=== PATIENT | female | born 1940 | race Caucasian/White ===

== ENCOUNTER 2016-04-27 | Outpatient (CLI) | payer MEDICARE, OTHER | END 2016-04-27 11:40 | disposition short-term general hospital (02) | CPT/HCPCS: A0425; A0433 ==

== ENCOUNTER 2016-05-05 17:10 | Inpatient (IN) | payer MEDICARE, OTHER ==
[2016-05-05] MEDS ORDERED: PANTOPRAZOLE 40 MG VIAL IVP STA (19:40)
[2016-05-05] MEDS ORDERED: PANTOPRAZOLE 40 MG VIAL ONE (19:44)
[2016-05-05] MEDS ORDERED: SODIUM CHLORIDE FLUSH 0.9% 10 ML SYRINGE IVP PRN (21:04)
[2016-05-05] MEDS ORDERED: MORPHINE 2 MG/ML SYRINGE IVP PRN (21:04)
[2016-05-05] MEDS ORDERED: ONDANSETRON 4 MG/2 ML VIAL IVP PRN (21:04)
[2016-05-05] MEDS ORDERED: ONDANSETRON ODT 4 MG TABLET TL PRN (21:04)
[2016-05-05] MEDS: SODIUM CHLORIDE FLUSH 0.9% 10 ML SYRINGE IVP SCH (22:25)
[2016-05-05] MEDS: SODIUM CHLORIDE 0.9% 1,000 ML IV SCH (22:25)
[2016-05-06] MEDS: ACETAMINOPHEN 325 MG TABLET PO PRN (00:12)
[2016-05-06] MEDS: BENZONATATE 100 MG CAPSULE PO PRN ×3 (01:00→20:52)
[2016-05-06] MEDS: LEVOTHYROXINE 88 MCG TABLET PO SCH (06:06)
[2016-05-06] MEDS: PANTOPRAZOLE 40 MG VIAL IVP SCH ×2 (06:06→16:20)
[2016-05-06] MEDS: SODIUM CHLORIDE FLUSH 0.9% 10 ML SYRINGE IVP SCH ×3 (06:12→21:14)
[2016-05-06] MEDS ORDERED: METOPROLOL TARTRATE 25 MG TABLET PO SCH ×2 (09:00→09:21)
[2016-05-06] MEDS: POLYETHYLENE GLYCOL 3350 17 GM PACKET PO SCH (09:07)
[2016-05-06] MEDS: ATORVASTATIN 40 MG TABLET PO SCH (09:18)
[2016-05-06] MEDS: CLOPIDOGREL 75 MG TABLET PO SCH (09:18)
[2016-05-06] MEDS: LISINOPRIL 20 MG TABLET PO SCH ×2 (09:18→20:52)
[2016-05-06] MEDS: SUCRALFATE 1 GM/10 ML UDC PO SCH ×3 (11:34→21:06)
[2016-05-06] MEDS: SODIUM CHLORIDE 0.9% 1,000 ML IV SCH (12:38)
[2016-05-06] MEDS: METOPROLOL TARTRATE 25 MG TABLET PO SCH (20:52)
[2016-05-07] MEDS: ACETAMINOPHEN 325 MG TABLET PO PRN (01:05)
[2016-05-07] MEDS: LEVOTHYROXINE 88 MCG TABLET PO SCH (06:37)
[2016-05-07] MEDS: PANTOPRAZOLE 40 MG VIAL IVP SCH (06:38)
[2016-05-07] MEDS: SUCRALFATE 1 GM/10 ML UDC PO SCH (06:38)
[2016-05-07] MEDS: SODIUM CHLORIDE FLUSH 0.9% 10 ML SYRINGE IVP SCH (06:38)
[2016-05-07] MEDS: ATORVASTATIN 40 MG TABLET PO SCH (08:52)
[2016-05-07] MEDS: CLOPIDOGREL 75 MG TABLET PO SCH (08:52)
[2016-05-07] MEDS: METOPROLOL TARTRATE 25 MG TABLET PO SCH (08:52)
[2016-05-07] MEDS: POLYETHYLENE GLYCOL 3350 17 GM PACKET PO SCH (08:52)
[2016-05-07] MEDS: LISINOPRIL 20 MG TABLET PO SCH (08:53)
[2016-05-07] MEDS ORDERED: ASPIRIN EC 81 MG TABLET PO SCH (09:00)
== END 2016-05-07 10:27 | disposition home or self-care (01) | DRG 947 ==
DX: R53.1 Weakness (principal); K92.2 Gastrointestinal hemorrhage, unspecified; I21.3 ST elevation (STEMI) myocardial infarction of unspecified site; G43.909 Migraine, unspecified, not intractable, without status migrainosus; K92.1 Melena; K21.9 Gastro-esophageal reflux disease without esophagitis; R35.1 Nocturia; H54.7 Unspecified visual loss; D64.9 Anemia, unspecified; M19.90 Unspecified osteoarthritis, unspecified site; R42 Dizziness and giddiness; I10 Essential (primary) hypertension; E03.9 Hypothyroidism, unspecified; E78.5 Hyperlipidemia, unspecified; I25.10 Atherosclerotic heart disease of native coronary artery without angina pectoris; Z95.5 Presence of coronary angioplasty implant and graft; F32.9 Major depressive disorder, single episode, unspecified; R05 Cough; R11.0 Nausea; Z79.2 Long term (current) use of antibiotics; Z79.82 Long term (current) use of aspirin; Z79.899 Other long term (current) drug therapy; Z87.11 Personal history of peptic ulcer disease; Z96.641 Presence of right artificial hip joint; Z87.891 Personal history of nicotine dependence

== ENCOUNTER 2016-05-17 08:00 | Outpatient (CLI) | payer MEDICARE, OTHER | END 2016-05-17 08:01 | disposition home or self-care (01) | DX: D64.9 Anemia, unspecified (principal) ==

== ENCOUNTER 2016-06-06 16:18 | Emergency (ER) | payer MEDICARE, OTHER ==
[2016-06-06] MEDS ORDERED: HYDROcod/ACETAM 5/325 MG TABLET PO STA (16:44)
[2016-06-06] MEDS ORDERED: HYDROcod/ACETAM 5/325 MG TABLET ONE (16:52)
[2016-06-06] MEDS ORDERED: MORPHINE 2 MG/ML SYRINGE ONE (17:23)
[2016-06-06] MEDS ORDERED: MORPHINE 2 MG/ML SYRINGE IVP STA (17:56)
[2016-06-06] MEDS ORDERED: KETOROLAC 60 MG/2 ML VIAL IVP STA (18:13)
[2016-06-06] MEDS ORDERED: KETOROLAC 30 MG/ML VIAL ONE (18:18)
== END 2016-06-06 18:30 | disposition home or self-care (01) ==
DX: R55 Syncope and collapse (principal); S30.0XXA Contusion of lower back and pelvis, initial encounter; W18.39XA Other fall on same level, initial encounter; Y93.E1 Activity, personal bathing and showering; Y92.002 Bathroom of unspecified non-institutional (private) residence as the place of occurrence of the external cause; Y99.8 Other external cause status; I10 Essential (primary) hypertension; R94.31 Abnormal electrocardiogram [ECG] [EKG]; I25.2 Old myocardial infarction; Z95.5 Presence of coronary angioplasty implant and graft; E03.9 Hypothyroidism, unspecified; Z79.02 Long term (current) use of antithrombotics/antiplatelets; Z79.82 Long term (current) use of aspirin; Z87.891 Personal history of nicotine dependence
CPT/HCPCS: 36415; 72100; 72220; 80053; 83690; 84484; 85025; 93005; 93010; 96374; 96375; 99283; 99284; A9270

== ENCOUNTER 2016-06-19 09:00 | Outpatient (CLI) | payer MEDICARE, OTHER | END 2016-06-19 09:01 | disposition home or self-care (01) | DX: N39.0 Urinary tract infection, site not specified (principal) ==

== ENCOUNTER 2016-07-31 14:19 | Outpatient (CLI) | payer MEDICARE, OTHER | END 2016-07-31 14:20 | disposition home or self-care (01) | DX: E30.9 Disorder of puberty, unspecified (principal); E03.9 Hypothyroidism, unspecified; R55 Syncope and collapse ==

== ENCOUNTER 2016-08-29 09:35 | Outpatient (CLI) | payer MEDICARE, OTHER | END 2016-08-29 09:36 | disposition home or self-care (01) | LOC: SC 09:35 | PROVIDERS: ATTEND Internal Medicine Pulmonary Disease | DX: G47.10 Hypersomnia, unspecified (principal); G47.8 Other sleep disorders; R06.83 Snoring | CPT/HCPCS: 99203; G0463; 99212 ==

== ENCOUNTER 2016-09-22 19:34 | Outpatient (CLI) | payer MEDICARE, OTHER | END 2016-09-22 19:35 | disposition home or self-care (01) | LOC: SC 19:34 | PROVIDERS: ATTEND Internal Medicine Pulmonary Disease | DX: G47.33 Obstructive sleep apnea (adult) (pediatric) (principal); G47.61 Periodic limb movement disorder; Z68.29 Body mass index [BMI] 29.0-29.9, adult | CPT/HCPCS: 95810 ==

== ENCOUNTER 2017-04-11 10:54 | Outpatient (CLI) | payer MEDICARE, OTHER | END 2017-04-11 10:55 | disposition critical access hospital (66) | LOC: EMS 10:54 | PROVIDERS: ATTEND Surgery | DX: R53.1 Weakness (principal); W18.2XXA Fall in (into) shower or empty bathtub, initial encounter; Y93.E1 Activity, personal bathing and showering; Y92.002 Bathroom of unspecified non-institutional (private) residence as the place of occurrence of the external cause | CPT/HCPCS: A0425; A0429 ==

== ENCOUNTER 2017-04-11 11:11 | Emergency (ER) | payer MEDICARE, OTHER ==
[2017-04-11] MEDS ORDERED: SODIUM CHLORIDE 0.9% 1,000 ML IV ONE (12:44)
[2017-04-11 13:26] LABS: BASOPHILS # (AUTO) 0.1 10^3/uL (0.0-0.1); BASOPHILS % (AUTO) 1.3 %; EOSINOPHILS # (AUTO) 0.4 10^3/uL (0.0-0.7); EOSINOPHILS % (AUTO) 4.3 %; HGB - HEMOGLOBIN 12.3 g/dL (12.0-16.0); LYMPHOCYTES # (AUTO) 1.2 10^3/uL (1.5-3.5); LYMPHOCYTES % (AUTO) 13.1 %; MEAN CORPUSCULAR HEMOGLOBIN 31.4 pg (27.0-31.0); MEAN CORPUSCULAR HGB CONC 33.7 g/dL (32.0-36.0); MEAN CORPUSCULAR VOLUME 93.2 fL (81.0-99.0); MEAN PLATELET VOLUME 9.5 fL (7.9-10.8); MONOCYTES # (AUTO) 0.7 10^3/uL (0.0-1.0); MONOCYTES % (AUTO) 8.1 %; NEUTROPHILS # (AUTO) 6.4 10^3/uL (1.5-6.6); NEUTROPHILS % (AUTO) 73.2 %; PLT - PLATELET COUNT 296 10^3/uL (130-450); RED BLOOD COUNT 3.92 10^6/uL (4.20-5.40); WHITE BLOOD COUNT 8.8 x10^3/uL (4.8-10.8)
[2017-04-11 13:39] LABS: ALBUMIN 3.8 g/dL (3.2-5.5); ALBUMIN/GLOBULIN RATIO 1.2 (1.0-2.2); BILIRUBIN,TOTAL 0.5 mg/dL (0.2-1.0); CREATININE 0.7 mg/dL (0.4-1.0); TOTAL PROTEIN 7.1 g/dL (6.7-8.2)
[2017-04-11 13:44] LABS: BILIRUBIN,URINE NEGATIVE (NEGATIVE); GLUCOSE, URINE (UA) NEGATIVE (NEGATIVE); KETONES,URINE (UA) NEGATIVE (NEGATIVE); LEUKOCYTE ESTERASE, URINE NEGATIVE (NEGATIVE); NITRITE,URINE NEGATIVE (NEGATIVE); OCCULT BLOOD,URINE NEGATIVE (NEGATIVE); PROTEIN,URINE NEGATIVE (NEGATIVE); UROBILINOGEN,URINE 0.2 (NORMAL) E.U./dL (NORMAL)
[2017-04-11 13:45] LABS: CLARITY,URINE CLEAR (CLEAR)
--- NOTE | 2017-04-11 14:11 | ED Physician Documentation ---
History of Present Illness - Stated complaint Stated Complaint: GLF - TAILBONE PAIN - Chief complaint Chief Complaint: Trauma Ch/Bk - History obtained from History obtained from: Patient, Family (Spouse) - History of Present Illness Timing: Today - Additonal information Additional information: The patient is a 76-year-old female who was in the shower this morning when she felt generally weak as if her legs would give out on her. She set down in the bathtub rather than fall. She complains of pain in her tailbone currently. She denies any other injuries. She does report having generalized weakness, waxing and waning for the past 2 weeks. She reports dysuria, and has had "tightness in the chest" intermittently for the past few months. She also reports dry cough. She was seen by her primary physician 4 days ago and a chest x-ray revealed a hiatal hernia without other acute findings. She was diagnosed with urinary tract infection 4 days ago and was started on cephalexin. On further review of systems she denies fever, abdominal pain, nausea or vomiting. Her past medical history significant for AL in April 2016. Review of Systems Constitutional: reports: Fatigue. denies: Fever Eyes: denies: Decreased vision Ears: denies: Tinnitus/ringing Nose: denies: Congestion Throat: denies: Sore throat Cardiac: reports: Chest pain / pressure (Mild chest tightness intermittently for the past few months. No chest pain currently.). denies: Palpitations Respiratory: reports: Cough (nonproductive). denies: Dyspnea GI: denies: Abdominal Pain, Nausea, Vomiting : reports: Dysuria Skin: denies: Rash Musculoskeletal: reports: Other (Coccygeal discomfort.). denies: Neck pain Neurologic: reports: Generalized weakness. 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 Cardiovascular: Coronary stent HEENT: Cataracts, Tonsil/Adenoidectomy, Other - Present Medications Home Medications: Ambulatory Orders Medication Instructions Recorded Confirmed Lisinopril [Zestril] 20 mg PO BID 08/13/15 05/05/16 hydroCHLOROthiazide 12.5 mg PO DAILY 08/13/15 05/05/16 [Hydrochlorothiazide] Atorvastatin [Lipitor] 40 mg PO QPM 05/05/16 05/07/16 Clopidogrel Bisulfate [Plavix] 75 mg PO DAILY 05/05/16 05/05/16 Fexofenadine HCl [Jazmín Allergy] 180 mg PO DAILY 05/05/16 05/05/16 Nefazodone HCl 200 mg PO BID 05/05/16 05/05/16 Aspirin Chewable [St Skinny 81 mg PO DAILY 05/07/16 05/07/16 Aspirin] Calcium Carbonate/Vitamin D3 1 tab PO DAILY 05/07/16 05/07/16 [Calcium 500 + Vit D Caplet] Levothyroxine [Synthroid] 75 mcg PO QDAC 05/07/16 05/07/16 Metoprolol Succinate [Toprol Xl] 25 mg PO BID 05/07/16 05/07/16 Multivitamin-Min/Iron/FA/Vit K 1 cap PO DAILY 05/07/16 05/07/16 [Multi For Her Softgel] Omeprazole [PriLOSEC] 20 mg PO BID 05/07/16 05/07/16 Potassium Chloride [Klor-Con 10] 20 meq PO DAILY 05/07/16 05/07/16 Lidocaine Patch 5% [Lidoderm Patch] 1 each TOP DAILY PRN #10 patch 06/06/16 Oxycodone HCl/Acetaminophen 1 - 2 tab PO Q4H PRN #15 tablet 06/06/16 [Percocet 5-325 mg Tablet] Tramadol HCl 50 mg PO BID PRN #15 tablet 04/11/17 - Allergies Allergies/Adverse Reactions: Allergies Allergy/AdvReac Type Severity Reaction Status Date / Time amoxicillin trihydrate * AdvReac Severe Cramps Verified 04/11/17 11:30 [From Augmentin] Niacin Preparations AdvReac Severe Unknown Verified 04/11/17 11:30 potassium clavulanate * AdvReac Severe Cramps Verified 04/11/17 11:30 [From Augmentin] - Social History Does the pt smoke?: No Smoking Status: Never smoker Does the pt drink ETOH?: Yes Does the pt have substance abuse?: No - Immunizations Immunizations are current?: Yes - POLST Patient has POLST: Yes PD ED PE NORMAL - Vitals Vital signs reviewed: Yes (hypertensive) - General General: Alert and oriented X 3, Well developed/nourished - HEENT HEENT: Atraumatic, PERRL, EOMI, Moist mucous membranes, Pharynx benign - Neck Neck: Supple, no meningeal sign, No bony TTP, No adenopathy, No JVD - Cardiac Cardiac: RRR, No murmur - Respiratory Respiratory: No respiratory distress, Clear bilaterally - Abdomen Abdomen: Soft, Non tender, No organomegaly - Back Back: No CVA TTP, Other (Mild tenderness to palpation over the coccygeal segments, without ecchymosis, swelling, or deformity.) - Derm Derm: No rash - Extremities Extremities: No edema, No calf tenderness / cord - Neuro Neuro: Alert and oriented X 3, No motor deficit, No sensory deficit, Normal speech Results - Vitals Vitals: Oxygen O2 Source Room air - EKG (time done) 13:57 Rate: Rate (enter#) (61) Rhythm: NSR [place]: Normal QRS: Normal Ischemia: Non specific changes (Nonspecific T-wave flattening.) Compare to prior EKG: Changed from prior EKG (Compared to prior tracing of 2016, T-wave inversion is no longer present in anterior lateral leads I, aVL, and V2-3.) Computer interpretation: Agree with computer - Labs Labs: Laboratory Tests 04/11/17 04/11/17 04/11/17 13:13 13:13 13:13 WBC 8.8 RBC 3.92 L Hgb 12.3 Hct 36.6 L MCV 93.2 MCH 31.4 H MCHC 33.7 RDW 15.0 Plt Count 296 MPV 9.5 Neut # 6.4 Lymph # 1.2 L [place] # 0.7 Eos # 0.4 Baso # 0.1 Absolute Nucleated RBC 0.00 Nucleated RBC % 0.0 Sodium 139 Potassium 4.1 Chloride 104 Carbon Dioxide 24 Anion Gap 11.0 BUN 19 Creatinine 0.7 Estimated GFR (MDRD) 81 L Glucose 79 Calcium 9.0 Total Bilirubin 0.5 AST 19 ALT 12 Alkaline Phosphatase 136 H Troponin I < 0.04 Total Protein 7.1 Albumin 3.8 Globulin 3.3 Albumin/Globulin Ratio 1.2 Lipase 29 Urine Color Urine Clarity Urine pH Ur Specific [place] Urine Protein Urine Glucose (UA) Urine Ketones Urine Occult Blood Urine Nitrite Urine Bilirubin Urine Urobilinogen Ur Leukocyte Esterase Ur Microscopic Review Urine Culture Comments 04/11/17 13:15 WBC RBC Hgb Hct MCV MCH MCHC RDW Plt Count MPV Neut # Lymph # [place] # Eos # Baso # Absolute Nucleated RBC Nucleated RBC % Sodium Potassium Chloride Carbon Dioxide Anion Gap BUN Creatinine Estimated GFR (MDRD) Glucose Calcium Total Bilirubin AST ALT Alkaline Phosphatase Troponin I Total Protein Albumin Globulin Albumin/Globulin Ratio Lipase Urine Color DARK YELLOW Urine Clarity CLEAR Urine pH 6.0 Ur Specific [place] 1.020 Urine Protein NEGATIVE Urine Glucose (UA) NEGATIVE Urine Ketones NEGATIVE Urine Occult Blood NEGATIVE Urine Nitrite NEGATIVE Urine Bilirubin NEGATIVE Urine Urobilinogen 0.2 (NORMAL) Ur Leukocyte Esterase NEGATIVE Ur Microscopic Review NOT INDICATED Urine Culture Comments NOT INDICATED PD MEDICAL DECISION MAKING - ED course Complexity details: reviewed old records, reviewed results, re-evaluated patient , considered differential, d/w patient, d/w family ED course: The patient's presentation is significant for contusion of her coccyx, buttocks secondary to falling into her bathtub. The underlying cause of her generalized weakness is uncertain at this time. There is no clinical evidence to suggest stroke or cardiovascular collapse. Electrocardiogram reveals normal sinus rhythm without acute ischemic abnormalities. CBC, chemistry panel, and urinalysis are unremarkable. Her urinalysis is negative, indicating resolution of urinary infection with the current antibiotic therapy. There is no clinical evidence to suggest sepsis or pyelonephritis. Treatment in the emergency department included administration of normal saline 1 L IV, and metoprolol 25 mg orally. She demonstrated the ability to ambulate without assistance. At the time of discharge she remained hypertensive. I discussed with her and her symptomatic treatment, outpatient follow-up, as well as potentially worrisome signs or symptoms that should prompt reevaluation in the emergency department. Departure - Departure Disposition: 01 Home, Self Care Clinical Impression: Weakness Fall Qualifiers: Encounter type: initial encounter Qualified Code(s): W19.XXXA - Unspecified fall, initial encounter Contusion, buttock Qualifiers: Encounter type: initial encounter Qualified Code(s): S30.0XXA - Contusion of lower back and pelvis, initial encounter Hypertension Qualifiers: Hypertension type: unspecified Qualified Code(s): I10 - Essential (primary) hypertension Condition: Stable Instructions: ED Fall Dizziness Weakn Balance Follow-Up: Alka Boacnegra MD [Primary Care Provider] - Prescriptions: Tramadol HCl 50 mg PO BID PRN #15 tablet PRN Reason: Pain Comments: Drink plenty of fluids. You can use tramadol as prescribed if needed for pain. Follow up with your primary physician within 1-2 weeks. Call to schedule appointment. Return to the emergency department if you develop increasing pain, recurrent lightheadedness or falling, or otherwise worsening symptoms. Discharge Date/Time: 04/11/17 17:00
[2017-04-11] MEDS ORDERED: METOPROLOL TARTRATE 50 MG TABLET PO STA (14:25)
[2017-04-11 16:10] VITALS: BP 212/88
== END 2017-04-11 17:00 | disposition home or self-care (01) ==
LOC: EDUNIT# → ED 11:11
DX: S30.0XXA Contusion of lower back and pelvis, initial encounter (principal); W18.2XXA Fall in (into) shower or empty bathtub, initial encounter; Y93.E1 Activity, personal bathing and showering; Y92.012 Bathroom of single-family (private) house as the place of occurrence of the external cause; R53.1 Weakness; I10 Essential (primary) hypertension; I25.2 Old myocardial infarction; E03.9 Hypothyroidism, unspecified; K21.9 Gastro-esophageal reflux disease without esophagitis; M19.90 Unspecified osteoarthritis, unspecified site; Z79.82 Long term (current) use of aspirin; Z79.02 Long term (current) use of antithrombotics/antiplatelets
CPT/HCPCS: 36415; 80053; 81003; 83690; 84484; 85025; 93005; 96360; 96361; 99284; A9270; 81001; 87086

== ENCOUNTER 2017-05-20 10:47 | Outpatient (CLI) | payer MEDICARE, OTHER ==
[2017-05-20 13:30] LABS: BASOPHILS # (AUTO) 0.1 10^3/uL (0.0-0.1); EOSINOPHILS # (AUTO) 0.3 10^3/uL (0.0-0.7); EOSINOPHILS % (AUTO) 3.8 %; HGB - HEMOGLOBIN 11.9 g/dL (12.0-16.0); LYMPHOCYTES # (AUTO) 1.2 10^3/uL (1.5-3.5); LYMPHOCYTES % (AUTO) 16.9 %; MEAN CORPUSCULAR HEMOGLOBIN 30.6 pg (27.0-31.0); MEAN CORPUSCULAR HGB CONC 33.3 g/dL (32.0-36.0); MEAN CORPUSCULAR VOLUME 91.9 fL (81.0-99.0); MEAN PLATELET VOLUME 9.7 fL (7.9-10.8); MONOCYTES # (AUTO) 0.5 10^3/uL (0.0-1.0); MONOCYTES % (AUTO) 6.3 %; NEUTROPHILS # (AUTO) 5.3 10^3/uL (1.5-6.6); PLT - PLATELET COUNT 295 10^3/uL (130-450); RED BLOOD COUNT 3.89 10^6/uL (4.20-5.40); WHITE BLOOD COUNT 7.4 x10^3/uL (4.8-10.8)
[2017-05-20 13:46] LABS: ALBUMIN 3.7 g/dL (3.2-5.5); ALBUMIN/GLOBULIN RATIO 1.2 (1.0-2.2); ALKALINE PHOSPHATASE 110 IU/L (42-121); ALT ALANINE AMINOTRANSFERASE 10 IU/L (10-60); AST ASPARTATE AMINOTRANSFERASE 20 IU/L (10-42); BILIRUBIN,TOTAL 0.4 mg/dL (0.2-1.0); BUN - BLOOD UREA NITROGEN 18 mg/dL (6-20); CARBON DIOXIDE - CO2 23 mmol/L (21-32); CHLORIDE 108 mmol/L (101-111); CHOL/HDL RATIO 4.2 (<4.4); CHOLESTEROL 263 mg/dL; CREATININE 0.7 mg/dL (0.4-1.0); GFR - MDRD 81 (>89); GLUCOSE 90 mg/dL (70-100); HDL CHOLESTEROL 62 mg/dL; LDL CHOLESTEROL,CALCULATED 157 mg/dL; LDL/HDL RATIO 2.5 (<4.4); SODIUM 138 mmol/L (135-145); TOTAL PROTEIN 6.8 g/dL (6.7-8.2); VLDL CHOLESTEROL 44 mg/dL
[2017-05-20 13:58] LABS: THYROID STIMULATING HORMONE 0.83 uIU/mL (0.34-5.60)
[2017-05-20 14:01] LABS: FREE T4 (FREE THYROXINE) 0.81 ng/dL (0.58-1.64)
[2017-05-20 14:10] LABS: FOLATE 13.99 ng/mL (5.90 - >24.8)
== END 2017-05-20 10:48 ==
LOC: LAB.N 10:47
PROVIDERS: ATTEND Family Medicine
DX: D64.9 Anemia, unspecified (principal); R55 Syncope and collapse; R53.83 Other fatigue; E03.9 Hypothyroidism, unspecified; I21.3 ST elevation (STEMI) myocardial infarction of unspecified site; I25.10 Atherosclerotic heart disease of native coronary artery without angina pectoris; M85.80 Other specified disorders of bone density and structure, unspecified site; E78.5 Hyperlipidemia, unspecified; I10 Essential (primary) hypertension; E87.6 Hypokalemia; F41.8 Other specified anxiety disorders
CPT/HCPCS: 36415; 80053; 80061; 82607; 82746; 83721; 84439; 84443; 85025

== ENCOUNTER 2017-06-02 09:17 | Outpatient (CLI) | payer MEDICARE, OTHER | END 2017-06-02 09:18 | disposition home or self-care (01) | LOC: SC 09:17 | PROVIDERS: ATTEND Nurse Practitioner Family | DX: G47.33 Obstructive sleep apnea (adult) (pediatric) (principal); G47.61 Periodic limb movement disorder | CPT/HCPCS: 99214; G0463; 99212 ==

== ENCOUNTER 2017-11-25 11:58 | Outpatient (CLI) | payer MEDICARE, OTHER ==
[2017-11-25 19:03] LABS: BASOPHILS # (AUTO) 0.1 10^3/uL (0.0-0.1); EOSINOPHILS # (AUTO) 0.2 10^3/uL (0.0-0.7); EOSINOPHILS % (AUTO) 2.2 %; LYMPHOCYTES # (AUTO) 1.5 10^3/uL (1.5-3.5); LYMPHOCYTES % (AUTO) 20.7 %; MEAN CORPUSCULAR HEMOGLOBIN 31.6 pg (27.0-31.0); MEAN CORPUSCULAR VOLUME 95.8 fL (81.0-99.0); MEAN PLATELET VOLUME 10.2 fL (7.9-10.8); MONOCYTES # (AUTO) 0.5 10^3/uL (0.0-1.0); MONOCYTES % (AUTO) 6.5 %; NEUTROPHILS # (AUTO) 5.1 10^3/uL (1.5-6.6); NEUTROPHILS % (AUTO) 69.6 %; PLT - PLATELET COUNT 316 10^3/uL (130-450); RED CELL DISTRIBUTION WIDTH 16.6 % (12.0-15.0); WHITE BLOOD COUNT 7.4 x10^3/uL (4.8-10.8)
[2017-11-25 19:22] LABS: ALBUMIN/GLOBULIN RATIO 1.4 (1.0-2.2); ALKALINE PHOSPHATASE 107 IU/L (42-121); ALT ALANINE AMINOTRANSFERASE 14 IU/L (10-60); AST ASPARTATE AMINOTRANSFERASE 22 IU/L (10-42); BILIRUBIN,TOTAL 0.6 mg/dL (0.2-1.0); BUN - BLOOD UREA NITROGEN 22 mg/dL (6-20); CARBON DIOXIDE - CO2 24 mmol/L (21-32); CHLORIDE 107 mmol/L (101-111); CHOL/HDL RATIO 3.6 (<4.4); CHOLESTEROL 199 mg/dL; CREATININE 0.8 mg/dL (0.4-1.0); GFR - MDRD 69 (>89); GLUCOSE 94 mg/dL (70-100); HDL CHOLESTEROL 55 mg/dL; LDL CHOLESTEROL,CALCULATED 110 mg/dL; SODIUM 138 mmol/L (135-145); TOTAL PROTEIN 6.8 g/dL (6.7-8.2); VLDL CHOLESTEROL 34 mg/dL
[2017-11-25 20:00] LABS: CRP - C-REACTIVE PROTEIN < 1.0 mg/dL (0-1.0)
[2017-11-27 13:22] LABS: ANA SCREEN NEGATIVE (NEGATIVE)
== END 2017-11-25 11:59 | disposition home or self-care (01) ==
LOC: LAB.N 11:58
PROVIDERS: ATTEND Family Medicine
DX: M25.50 Pain in unspecified joint (principal); D64.9 Anemia, unspecified; M19.90 Unspecified osteoarthritis, unspecified site; R53.83 Other fatigue; E78.5 Hyperlipidemia, unspecified; I10 Essential (primary) hypertension; E87.6 Hypokalemia; E03.9 Hypothyroidism, unspecified; F41.8 Other specified anxiety disorders
CPT/HCPCS: 36415; 80053; 80061; 83721; 84443; 85025; 85651; 86038; 86140

== ENCOUNTER 2018-05-27 15:29 | Outpatient (CLI) | payer MEDICARE, OTHER ==
[2018-05-27 18:41] LABS: BASOPHILS # (AUTO) 0.1 10^3/uL (0.0-0.1); EOSINOPHILS # (AUTO) 0.2 10^3/uL (0.0-0.7); EOSINOPHILS % (AUTO) 2.9 %; HGB - HEMOGLOBIN 13.2 g/dL (12.0-16.0); LYMPHOCYTES # (AUTO) 1.6 10^3/uL (1.5-3.5); LYMPHOCYTES % (AUTO) 25.7 %; MEAN CORPUSCULAR HEMOGLOBIN 32.4 pg (27.0-31.0); MEAN CORPUSCULAR HGB CONC 33.1 g/dL (32.0-36.0); MEAN CORPUSCULAR VOLUME 97.9 fL (81.0-99.0); MEAN PLATELET VOLUME 10.3 fL (7.9-10.8); MONOCYTES # (AUTO) 0.5 10^3/uL (0.0-1.0); MONOCYTES % (AUTO) 7.6 %; NEUTROPHILS % (AUTO) 62.8 %; PLT - PLATELET COUNT 256 10^3/uL (130-450); RED BLOOD COUNT 4.08 10^6/uL (4.20-5.40); RED CELL DISTRIBUTION WIDTH 16.2 % (12.0-15.0); WHITE BLOOD COUNT 6.3 x10^3/uL (4.8-10.8)
[2018-05-27 19:50] LABS: ALBUMIN 3.7 g/dL (3.2-5.5); ALBUMIN/GLOBULIN RATIO 1.3 (1.0-2.2); ALKALINE PHOSPHATASE 94 IU/L (42-121); ALT ALANINE AMINOTRANSFERASE 14 IU/L (10-60); AST ASPARTATE AMINOTRANSFERASE 26 IU/L (10-42); BILIRUBIN,TOTAL 0.6 mg/dL (0.2-1.0); BUN - BLOOD UREA NITROGEN 14 mg/dL (6-20); CALCIUM 8.9 mg/dL (8.5-10.3); CARBON DIOXIDE - CO2 24 mmol/L (21-32); CHLORIDE 106 mmol/L (101-111); CHOL/HDL RATIO 2.5 (<4.4); CHOLESTEROL 144 mg/dL; CREATININE 0.8 mg/dL (0.4-1.0); GFR - MDRD 69 (>89); GLUCOSE 145 mg/dL (70-100); HDL CHOLESTEROL 58 mg/dL; LDL CHOLESTEROL,CALCULATED 58 mg/dL; SODIUM 138 mmol/L (135-145); TOTAL PROTEIN 6.5 g/dL (6.7-8.2); VLDL CHOLESTEROL 28 mg/dL
== END 2018-05-27 23:59 | disposition home or self-care (01) ==
LOC: LAB.N 15:29
PROVIDERS: ATTEND Family Medicine
DX: E78.5 Hyperlipidemia, unspecified (principal); I10 Essential (primary) hypertension; E03.9 Hypothyroidism, unspecified
CPT/HCPCS: 36415; 80048; 80053; 80061; 83721; 84443; 85025

== ENCOUNTER 2018-07-19 14:22 | Emergency (ER) | payer MEDICARE, OTHER ==
[2018-07-19] MEDS ORDERED: SODIUM CHLORIDE 0.9% 1,000 ML IV ONE (15:18)
--- NOTE | 2018-07-19 15:22 | ED Physician Documentation ---
PD HPI SYNCOPE - Stated complaint Stated Complaint: GLF/ABD PX - Chief complaint Chief Complaint: Neuro - History obtained from History obtained from: Patient, Friend - History of Present Illness Witnessed: Unwitnessed Timing - onset: Today Duration: Seconds Preceding symptoms: Vision changes, Abdominal pain, Light headed, Generalized weakness, Other (diarrhea) Associated symptoms: Diaphoresis, Abdominal pain Contributing factors: Decreased PO intake, Other (diarrhea) Injury occurred: Other (right thigh pain) Similar symptoms before: Has not had sx before Recently seen: Not recently seen - Additional information Additional information: 77-year-old female has had a good friend have a fall in his home and he is ended up in the hospital here with broken ribs. He has been in a lot of pain for days and she has been very stressed with this and has not been eating or drinking well. She was in his room this morning at the hospital when she developed urgen cy and went to the bathroom to have some diarrhea. She was incontinent of diarrhea and while she was on the commode she fell forward and was not able to get back up off of her knees. Eventually the nurse did come to check on her and it had been about 20 minutes that she was in the bathroom. The patient denies hitting her head she is uncertain whether she had complete syncope. Review of Systems Constitutional: reports: Fatigue. denies: Fever, Chills Eyes: denies: Decreased vision Ears: denies: Ear pain Nose: denies: Rhinorrhea / runny nose, Congestion Throat: denies: Sore throat Cardiac: denies: Chest pain / pressure, Palpitations Respiratory: denies: Dyspnea, Cough GI: reports: Abdominal Pain, Diarrhea. 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 Cardiovascular: Coronary stent HEENT: Cataracts, Tonsil/Adenoidectomy, Other - Present Medications Home Medications: Ambulatory Orders Medication Instructions Recorded Confirmed Lisinopril [Zestril] 20 mg PO BID 08/13/15 05/05/16 hydroCHLOROthiazide 12.5 mg PO DAILY 08/13/15 05/05/16 [Hydrochlorothiazide] Atorvastatin [Lipitor] 40 mg PO QPM 05/05/16 05/07/16 Clopidogrel Bisulfate [Plavix] 75 mg PO DAILY 05/05/16 05/05/16 Fexofenadine HCl [Jazmín Allergy] 180 mg PO DAILY 05/05/16 05/05/16 Nefazodone HCl 200 mg PO BID 05/05/16 05/05/16 Aspirin Chewable [St Skinny 81 mg PO DAILY 05/07/16 05/07/16 Aspirin] Calcium Carbonate/Vitamin D3 1 tab PO DAILY 05/07/16 05/07/16 [Calcium 500 + Vit D Caplet] Levothyroxine [Synthroid] 75 mcg PO QDAC 05/07/16 05/07/16 Metoprolol Succinate [Toprol Xl] 25 mg PO BID 05/07/16 05/07/16 Multivitamin-Min/Iron/FA/Vit K 1 cap PO DAILY 05/07/16 05/07/16 [Multi For Her Softgel] Omeprazole [PriLOSEC] 20 mg PO BID 05/07/16 05/07/16 Potassium Chloride [Klor-Con 10] 20 meq PO DAILY 05/07/16 05/07/16 Lidocaine Patch 5% [Lidoderm Patch] 1 each TOP DAILY PRN #10 patch 06/06/16 Oxycodone HCl/Acetaminophen 1 - 2 tab PO Q4H PRN #15 tablet 06/06/16 [Percocet 5-325 mg Tablet] Tramadol HCl 50 mg PO BID PRN #15 tablet 04/11/17 - Allergies Allergies/Adverse Reactions: Allergies Allergy/AdvReac Type Severity Reaction Status Date / Time amoxicillin trihydrate * AdvReac Severe Cramps Verified 07/19/18 14:35 [From Augmentin] Niacin Preparations AdvReac Severe Unknown Verified 07/19/18 14:35 potassium clavulanate * AdvReac Severe Cramps Verified 07/19/18 14:35 [From Augmentin] - Social History Does the pt smoke?: No Smoking Status: Never smoker Does the pt drink ETOH?: Yes Does the pt have substance abuse?: No - Immunizations Immunizations are current?: Yes - POLST Patient has POLST: Yes PD ED PE NORMAL - Vitals Vital signs reviewed: Yes (normal ) - General General: Alert and oriented X 3, No acute distress, Well developed/nourished - HEENT HEENT: Atraumatic, PERRL, EOMI - Neck Neck: Supple, no meningeal sign, No bony TTP - Cardiac Cardiac: RRR, No murmur - Respiratory Respiratory: No respiratory distress, Clear bilaterally - Abdomen Abdomen: Soft, Non tender - Back Back: No CVA TTP, No spinal TTP - Derm Derm: Normal color, Warm and dry, No rash - Extremities Extremities: No deformity, No edema - Neuro Neuro: Alert and oriented X 3, 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, No motor deficit, No sensory deficit, Normal speech Eye Opening: Spontaneous Motor: Obeys Commands Verbal: Oriented GCS Score: 15 - Psych Psych: Normal mood, Normal affect Results - Vitals Vitals: Vital Signs - 24 hr 07/19/18 07/19/18 07/19/18 14:28 14:56 16:38 Temperature 36.7 C 36.3 C L Heart Rate 57 L 60 69 Respiratory 16 18 18 Rate Blood Pressure 126/62 141/63 H 134/66 H O2 Saturation 97 93 99 Oxygen O2 Source Room air - EKG (time done) 1432 Rate: Rate (enter#) (55) Rhythm: Sinus bradycardia Ischemia: Other (flat T waves ) Compare to prior EKG: Unchanged from prior EKG (SPT 04-11-17) Computer interpretation: Disagree with computer (This is not afib ) - Labs Labs: Laboratory Tests 07/19/18 07/19/18 07/19/18 15:50 15:50 15:50 WBC 10.1 RBC 3.99 L Hgb 13.5 Hct 40.4 MCV 101.3 H MCH 33.9 H MCHC 33.4 RDW 15.3 H Plt Count 234 MPV 9.8 Neut # (Auto) 8.5 H Lymph # (Auto) 1.0 L [place] # (Auto) 0.5 Eos # (Auto) 0.1 Baso # (Auto) 0.1 Absolute Nucleated RBC 0.00 Nucleated RBC % 0.0 Sodium 140 Potassium 4.2 Chloride 107 Carbon Dioxide 25 Anion Gap 8.0 BUN 16 Creatinine 0.7 Estimated GFR (MDRD) 81 L Glucose 114 H Calcium 9.4 Total Bilirubin 0.6 AST 29 ALT 16 Alkaline Phosphatase 81 Troponin I < 0.04 Total Protein 7.0 Albumin 3.8 Globulin 3.2 Albumin/Globulin Ratio 1.2 Lipase 26 Urine Color Urine Clarity Urine pH Ur Specific [place] Urine Protein Urine Glucose (UA) Urine Ketones Urine Occult Blood Urine Nitrite Urine Bilirubin Urine Urobilinogen Ur Leukocyte Esterase Urine RBC Urine WBC Ur Epithelial Cells Ur Squamous Epith Cells Urine Bacteria Urine Casts Urine Mucus Ur Microscopic Review Urine Culture Comments 07/19/18 15:50 WBC RBC Hgb Hct MCV MCH MCHC RDW Plt Count MPV Neut # (Auto) Lymph # (Auto) [place] # (Auto) Eos # (Auto) Baso # (Auto) Absolute Nucleated RBC Nucleated RBC % Sodium Potassium Chloride Carbon Dioxide Anion Gap BUN Creatinine Estimated GFR (MDRD) Glucose Calcium Total Bilirubin AST ALT Alkaline Phosphatase Troponin I Total Protein Albumin Globulin Albumin/Globulin Ratio Lipase Urine Color YELLOW Urine Clarity HAZY Urine pH 5.5 Ur Specific [place] >=1.030 H Urine Protein NEGATIVE Urine Glucose (UA) NEGATIVE Urine Ketones TRACE Urine Occult Blood NEGATIVE Urine Nitrite POSITIVE H Urine Bilirubin NEGATIVE Urine Urobilinogen 0.2 (NORMAL) Ur Leukocyte Esterase NEGATIVE Urine RBC 0-5 Urine WBC 4-5 Ur Epithelial Cells FEW Transitional Ur Squamous Epith Cells FEW Squamous Urine Bacteria Many H Urine Casts 11-25 Hyaline Casts Urine Mucus Moderate Strands Ur Microscopic Review INDICATED Urine Culture Comments INDICATED Procedures - IVC sono (time) 1520 Bedside IVC sono: IVC measures (cm) (1.14), IVC collapsed c insp (cm) (complete), Dehydration (est 1 liter deficit) PD MEDICAL DECISION MAKING - ED course Complexity details: reviewed old records, reviewed results, re-evaluated patient, considered differential, d/w patient, d/w family ED course: 77-year-old female with significant stresses developed diarrhea and has had a syncopal episode. She is found to be dehydrated on interrogation of the inferior vena cava and she is administered normal saline. There is evidence of UTI on exam of urine with bacteria and nitrite and the urine did make the grade for culture. The patient is administered IV rocephin and we will wait for culture results to determine the need for continued antibiotic. Departure - Departure Disposition: 01 Home, Self Care Clinical Impression: Dehydration Syncope Qualifiers: Syncope type: unspecified Qualified Code(s): R55 - Syncope and collapse Urinary tract infection Qualifiers: Urinary tract infection type: acute cystitis Hematuria presence: with hematuria Qualified Code(s): N30.01 - Acute cystitis with hematuria Condition: Stable Instructions: ED Dehydration, ED Syncope Vasovagal Follow-Up: Alka Bocanegra MD [Primary Care Provider] - Comments: Today you were treated for dehydration and there is a potential urinary tract infection. Urine culture will be available in 2 days.
[2018-07-19 16:00] LABS: BASOPHILS # (AUTO) 0.1 10^3/uL (0.0-0.1); BASOPHILS % (AUTO) 0.8 %; EOSINOPHILS # (AUTO) 0.1 10^3/uL (0.0-0.7); EOSINOPHILS % (AUTO) 0.6 %; HGB - HEMOGLOBIN 13.5 g/dL (12.0-16.0); LYMPHOCYTES % (AUTO) 9.9 %; MEAN CORPUSCULAR HEMOGLOBIN 33.9 pg (27.0-31.0); MEAN CORPUSCULAR HGB CONC 33.4 g/dL (32.0-36.0); MEAN CORPUSCULAR VOLUME 101.3 fL (81.0-99.0); MEAN PLATELET VOLUME 9.8 fL (7.9-10.8); MONOCYTES # (AUTO) 0.5 10^3/uL (0.0-1.0); NEUTROPHILS # (AUTO) 8.5 10^3/uL (1.5-6.6); NEUTROPHILS % (AUTO) 83.7 %; PLT - PLATELET COUNT 234 10^3/uL (130-450); RED BLOOD COUNT 3.99 10^6/uL (4.20-5.40); RED CELL DISTRIBUTION WIDTH 15.3 % (12.0-15.0); WHITE BLOOD COUNT 10.1 x10^3/uL (4.8-10.8)
[2018-07-19 16:13] LABS: BILIRUBIN,URINE NEGATIVE (NEGATIVE); GLUCOSE, URINE (UA) NEGATIVE (NEGATIVE); KETONES,URINE (UA) TRACE mg/dL (NEGATIVE); LEUKOCYTE ESTERASE, URINE NEGATIVE (NEGATIVE); NITRITE,URINE POSITIVE (NEGATIVE); OCCULT BLOOD,URINE NEGATIVE (NEGATIVE); PH,URINE 5.5 PH (5.0-7.5); PROTEIN,URINE NEGATIVE (NEGATIVE); UROBILINOGEN,URINE 0.2 (NORMAL) E.U./dL (NORMAL)
[2018-07-19 16:16] LABS: CLARITY,URINE HAZY (CLEAR)
[2018-07-19 16:21] LABS: RBC,URINE 0-5 /HPF (0-5); SQUAMOUS EPITHELIAL CELL,UR FEW Squamous (<= Few)
[2018-07-19 16:22] LABS: BACTERIA,URINE Many /HPF (None Seen); EPITHELIAL CELLS,UR FEW Transitional /HPF (<= Few)
[2018-07-19 16:23] LABS: MUCUS,URINE Moderate Strands
[2018-07-19 16:25] LABS: ALBUMIN 3.8 g/dL (3.2-5.5); ALBUMIN/GLOBULIN RATIO 1.2 (1.0-2.2); BILIRUBIN,TOTAL 0.6 mg/dL (0.2-1.0); CALCIUM 9.4 mg/dL (8.5-10.3); CREATININE 0.7 mg/dL (0.4-1.0)
[2018-07-19] MEDS ORDERED: cefTRIAXone 1 GM in SODIUM CHLORIDE 0.9% MINIBAG 100 ML IV STA (16:29)
[2018-07-19 17:16] VITALS: BP 149/63
== END 2018-07-19 17:29 | disposition home or self-care (01) ==
LOC: ED 14:22
DX: E86.0 Dehydration (principal); R55 Syncope and collapse; N30.01 Acute cystitis with hematuria; R94.31 Abnormal electrocardiogram [ECG] [EKG]; Z91.81 History of falling; I25.2 Old myocardial infarction; I10 Essential (primary) hypertension; E03.9 Hypothyroidism, unspecified; Z95.5 Presence of coronary angioplasty implant and graft; Z79.82 Long term (current) use of aspirin
CPT/HCPCS: 36415; 80053; 81001; 81003; 83690; 84484; 85025; 87077; 87086; 87181; 93005; 96365; 99284

== ENCOUNTER 2018-08-07 13:07 | Outpatient (CLI) | payer MEDICARE, OTHER ==
[2018-08-07 18:59] LABS: BILIRUBIN,URINE NEGATIVE (NEGATIVE); GLUCOSE, URINE (UA) NEGATIVE (NEGATIVE); KETONES,URINE (UA) TRACE mg/dL (NEGATIVE); LEUKOCYTE ESTERASE, URINE SMALL (NEGATIVE); NITRITE,URINE NEGATIVE (NEGATIVE); OCCULT BLOOD,URINE NEGATIVE (NEGATIVE); PH,URINE 5.5 PH (5.0-7.5); PROTEIN,URINE TRACE mg/dL (NEGATIVE); UROBILINOGEN,URINE 0.2 (NORMAL) E.U./dL (NORMAL)
[2018-08-07 19:07] LABS: BACTERIA,URINE Rare /HPF (None Seen); CLARITY,URINE HAZY (CLEAR); RBC,URINE 0-5 /HPF (0-5); SQUAMOUS EPITHELIAL CELL,UR MANY Squamous (<= Few)
== END 2018-08-07 23:59 | disposition home or self-care (01) ==
LOC: LAB.N 13:07
PROVIDERS: ATTEND Family Medicine
DX: R30.0 Dysuria (principal)
CPT/HCPCS: 81001; 81003; 87086

== ENCOUNTER 2018-10-31 20:34 | Emergency (ER) | payer MEDICARE, OTHER ==
--- NOTE | 2018-10-31 21:00 | ED Physician Documentation ---
History of Present Illness - Stated complaint Stated Complaint: LFT LEG SWELLING - Chief complaint Chief Complaint: Ext Problem - History obtained from History obtained from: Patient - History of Present Illness Timing: How many weeks ago (3) Pain level max: 10 - Additonal information Additional information: This is a 78-year-old woman who presents with her significant other complaints at 3 weeks ago she was visiting family in [place] when she fell and injured "her left side" of her body. She went into the emergency department and had x- rays done. She had a wound on the lateral aspect of the left lower leg that just has not healed. The leg is been swollen since she fell but the redness is getting worse and now it is oozing a little bit around that wound. There is just a throbbing pain for which they prescribed oxycodone but is not helping it at all. She is able to bear weight but is very painful. She is been icing it. She flew to her daughter's home 8 days ago in [facility] and then came home 3 days ago. She is not sure if she is had fevers but has been feeling chills and sweats the past couple days. She is felt nauseous. Denies chest pain. She does occasionally feel like it is hard to get a deep breath. Denies history of diabetes. She has a history of MT 2 years ago Review of Systems Constitutional: reports: Chills, Sweats. denies: Fever Cardiac: denies: Chest pain / pressure, Palpitations Respiratory: reports: Dyspnea GI: reports: Nausea (Secondary to pain). denies: Vomiting Skin: reports: Other (Wound to the lateral lower left leg. Bruising to left thigh) Musculoskeletal: reports: Extremity pain Neurologic: denies: Focal weakness, Syncope PD PAST MEDICAL HISTORY - Past Medical History Cardiovascular: Hypertension, [place] Respiratory: Shortness of breath Endocrine/Autoimmune: HyPOthyroidism GI: GERD, Other : Nocturia HEENT: Chronic vision loss Psych: Depression Musculoskeletal: Osteoarthritis Derm: None - Past Surgical History Past Surgical History: Yes General: Colonoscopy Ortho: Hip replacement /ORCHARD HAND: Hysterectomy Cardiovascular: Coronary stent HEENT: Cataracts, Tonsil/Adenoidectomy, Other - Present Medications Home Medications: Ambulatory Orders Medication Instructions Recorded Confirmed RX: Lisinopril [Zestril] 20 mg PO BID 08/13/15 05/05/16 RX: hydroCHLOROthiazide 12.5 mg PO DAILY 08/13/15 05/05/16 [Hydrochlorothiazide] RX: Atorvastatin [Lipitor] 40 mg PO QPM 05/05/16 05/07/16 RX: Clopidogrel Bisulfate [Plavix] 75 mg PO DAILY 05/05/16 05/05/16 RX: Fexofenadine HCl [Jazmín 180 mg PO DAILY 05/05/16 05/05/16 Allergy] RX: Nefazodone HCl 200 mg PO BID 05/05/16 05/05/16 Calcium Carbonate/Vitamin D3 1 tab PO DAILY 05/07/16 05/07/16 [Calcium 500 + Vit D Caplet] Metoprolol Succinate [Toprol Xl] 25 mg PO BID 05/07/16 05/07/16 Omeprazole [PriLOSEC] 20 mg PO BID 05/07/16 05/07/16 RX: Aspirin Chewable [St Skinny 81 mg PO DAILY 05/07/16 05/07/16 Aspirin] RX: Levothyroxine [Synthroid] 75 mcg PO QDAC 05/07/16 05/07/16 RX: Multivitamin-Min/Iron/FA/Vit K 1 cap PO DAILY 05/07/16 05/07/16 [Multi For Her Softgel] RX: Potassium Chloride [Klor-Con 20 meq PO DAILY 05/07/16 05/07/16 10] Lidocaine Patch 5% [Lidoderm Patch] 1 each TOP DAILY PRN #10 patch 06/06/16 Oxycodone HCl/Acetaminophen 1 - 2 tab PO Q4H PRN #15 tablet 06/06/16 [Percocet 5-325 mg Tablet] RX: Tramadol HCl 50 mg PO BID PRN #15 tablet 04/11/17 Hydrocodone/Acetaminophen 0 - 1 each PO Q6H PRN #14 tablet 11/01/18 [Hydrocodon-Acetaminophen 5-325] cephALEXin [Keflex] 250 mg PO Q6H #20 capsule 11/01/18 - Allergies Allergies/Adverse Reactions: Allergies Allergy/AdvReac Type Severity Reaction Status Date / Time amoxicillin trihydrate * AdvReac Severe Cramps Verified 07/19/18 14:35 [From Augmentin] Niacin Preparations AdvReac Severe Unknown Verified 07/19/18 14:35 potassium clavulanate * AdvReac Severe Cramps Verified 07/19/18 14:35 [From Augmentin] - Social History Does the pt smoke?: No Smoking Status: Never smoker Does the pt drink ETOH?: Yes Does the pt have substance abuse?: No - Immunizations Immunizations are current?: Yes - POLST Patient has POLST: Yes PD ED PE NORMAL - Vitals Vital signs reviewed: Yes - General General: Alert and oriented X 3, No acute distress, Well developed/nourished - HEENT HEENT: Atraumatic - Respiratory Respiratory: No respiratory distress - Extremities Extremities: Other (There is purple discolored bruising to the left lateral thigh. The lower leg has what appears to be a hematoma above the lateral malleolus with surrounding erythema and edema down encompassing the foot. There is bruising to the lateral foot. Hematoma is exquisitely tender. There is no warmth associated with it.) - Neuro Neuro: Alert and oriented X 3, No motor deficit, No sensory deficit Results - Vitals Vitals: Vital Signs - 24 hr 10/31/18 10/31/18 11/01/18 20:40 22:49 00:22 Temperature 36.6 C 36.3 C L Heart Rate 70 69 67 Respiratory 18 12 18 Rate Blood Pressure 153/76 H 150/66 H 147/66 H O2 Saturation 96 94 92 Oxygen O2 Source Room air - Labs Labs: Laboratory Tests 10/31/18 10/31/18 21:30 21:30 WBC 9.1 RBC 3.10 L Hgb 10.5 L Hct 33.0 L MCV 106.5 H MCH 33.9 H MCHC 31.8 L RDW 15.7 H Plt Count 421 MPV 10.1 Neut # (Auto) 6.8 H Lymph # (Auto) 1.1 L Jones # (Auto) 0.8 Eos # (Auto) 0.3 Baso # (Auto) 0.1 Absolute Nucleated RBC 0.00 Nucleated RBC % 0.0 Sodium 143 Potassium 3.4 L Chloride 110 Carbon Dioxide 21 Anion Gap 12.0 BUN 15 Creatinine 0.7 Estimated GFR (MDRD) 81 L Glucose 131 H Calcium 9.0 - Rads (name of study) L tib-fib Radiology: EMP read contemporaneously, See rad report (Neg fracture) Duplex U/S LLE Radiology: See rad report (Neg DVT) PD MEDICAL DECISION MAKING - ED course Complexity details: reviewed results, re-evaluated patient, d/w patient ED course: Patient was given morphine for the pain. I did re-x-ray it because of the appearance and the severe pain to make sure she did not have a nondisplaced fibular fracture that was not apparent on the initial x-rays. The x-ray was negative and ultrasound of DVT was negative. She is placed on Keflex 250 mg 4 times daily for 5 days. She is encouraged to rest and elevate the leg is much as possible and use some sort of compression stocking or Mohinder wrap. We discussed that this is going to take weeks for it to heal. Departure - Departure Disposition: 01 Home, Self Care Clinical Impression: Cellulitis, Hematoma Condition: Good Instructions: ED Infec Skin Cellulitis Follow-Up: Alka Bocanegra MD [Primary Care Provider] - Prescriptions: cephALEXin [Keflex] 250 mg PO Q6H #20 capsule Hydrocodone/Acetaminophen [Hydrocodon-Acetaminophen 5-325] 0 - 1 each PO Q6H PRN #14 tablet PRN Reason: pain Comments: Take the Keflex as prescribed 4 times a day for 5 days. Keep the leg wash with an antibacterial soap and a compression bandage can help reduce the swelling. Follow-up with your primary care provider if it in leg continues to swell or have severe pain. Discharge Date/Time: 11/01/18 00:33
[2018-10-31] MEDS ORDERED: ONDANSETRON 4 MG/2 ML VIAL IVP STA (21:01)
[2018-10-31] MEDS ORDERED: MORPHINE 2 MG/ML CARPUJECT IVP STA ×2 (21:01→23:25)
[2018-10-31 21:41] LABS: BASOPHILS # (AUTO) 0.1 10^3/uL (0.0-0.1); BASOPHILS % (AUTO) 0.5 %; EOSINOPHILS # (AUTO) 0.3 10^3/uL (0.0-0.7); HGB - HEMOGLOBIN 10.5 g/dL (12.0-16.0); LYMPHOCYTES # (AUTO) 1.1 10^3/uL (1.5-3.5); LYMPHOCYTES % (AUTO) 12.5 %; MEAN CORPUSCULAR HEMOGLOBIN 33.9 pg (27.0-31.0); MEAN CORPUSCULAR HGB CONC 31.8 g/dL (32.0-36.0); MEAN CORPUSCULAR VOLUME 106.5 fL (81.0-99.0); MEAN PLATELET VOLUME 10.1 fL (7.9-10.8); MONOCYTES # (AUTO) 0.8 10^3/uL (0.0-1.0); NEUTROPHILS # (AUTO) 6.8 10^3/uL (1.5-6.6); NEUTROPHILS % (AUTO) 74.7 %; PLT - PLATELET COUNT 421 10^3/uL (130-450); RED CELL DISTRIBUTION WIDTH 15.7 % (12.0-15.0); WHITE BLOOD COUNT 9.1 x10^3/uL (4.8-10.8)
--- NOTE | 2018-10-31 21:53 | XRAY Report ---
Reason: trauma Procedure Date: 10/31/2018 Accession Number: [id number] / [id number] Procedure: XR - Tib/Fib LT CPT Code: FULL RESULT: EXAM: LEFT TIBIA/FIBULA RADIOGRAPHY EXAM DATE: 10/31/2018 09:31 PM. CLINICAL HISTORY: Trauma. COMPARISON: None. TECHNIQUE: 2 views. FINDINGS: Bones: Normal. No fracture or bone lesion. Joints: The visualized knee and ankle joints are normal. No effusions. Soft Tissues: Normal. No soft tissue swelling. IMPRESSION: Normal tibia/fibula radiography. RADIA
[2018-10-31 21:54] LABS: CREATININE 0.7 mg/dL (0.4-1.0)
--- NOTE | 2018-10-31 23:11 | Ultrasound Report ---
Reason: left leg tauma and swelling Procedure Date: 10/31/2018 Accession Number: [id number] / [id number] Procedure: US - Duplex Ext Veins Left CPT Code: FULL RESULT: EXAM: LEFT LOWER EXTREMITY VENOUS ULTRASOUND EXAM DATE: 10/31/2018 11:02 PM. CLINICAL HISTORY: Left leg trauma. Swelling. COMPARISON: None. TECHNIQUE: Real-time sonographic vascular imaging was performed by the spray gun operator through the lower extremity utilizing both color-flow and Doppler spectral analysis. Multiple financial services sales representative static images were saved for review. FINDINGS: Common Femoral Vein (CFV): Normal. CFV-GSV Junction: Normal. Profunda Femoral Vein (PFV): Normal. Femoral Vein (FV) Prox: Normal. Femoral Vein (FV) Mid: Normal. Femoral Vein (FV) Dist: Normal. Popliteal Vein: Normal. Posterior Tibial Veins: Limited visualization. Peroneal Veins: Limited visualization. Contralateral Side CFV: Normal. Other: None. IMPRESSION: No evidence for deep venous thrombosis. RADIA
[2018-11-01] MEDS ORDERED: cephALEXin 250 MG CAPSULE PO STA (00:12)
[2018-11-01] MEDS ORDERED: BACITRACIN OINT TOP STA (00:12)
[2018-11-01 00:22] VITALS: BP 147/66
== END 2018-11-01 00:33 | disposition home or self-care (01) ==
LOC: ED 20:34
DX: L03.116 Cellulitis of left lower limb (principal); S80.12XA Contusion of left lower leg, initial encounter; S70.12XA Contusion of left thigh, initial encounter; S90.32XA Contusion of left foot, initial encounter; W18.30XA Fall on same level, unspecified, initial encounter; I10 Essential (primary) hypertension; I25.2 Old myocardial infarction; Z79.02 Long term (current) use of antithrombotics/antiplatelets; Z79.82 Long term (current) use of aspirin
CPT/HCPCS: 36415; 73590; 80048; 85025; 93971; 96374; 96376; 99284; A9270

== ENCOUNTER 2020-09-25 14:10 | Emergency (ER) | payer MEDICARE, OTHER ==
[2020-09-25 15:37] LABS: BASOPHILS # (AUTO) 0.1 10^3/uL (0.0-0.1); BASOPHILS % (AUTO) 0.7 %; EOSINOPHILS # (AUTO) 0.1 10^3/uL (0.0-0.7); EOSINOPHILS % (AUTO) 1.5 %; HCT - HEMATOCRIT 38.5 % (37.0-47.0); HGB - HEMOGLOBIN 13.5 g/dL (12.0-16.0); LYMPHOCYTES # (AUTO) 1.2 10^3/uL (1.5-3.5); MEAN CORPUSCULAR HEMOGLOBIN 35.9 pg (27.0-31.0); MEAN CORPUSCULAR HGB CONC 35.1 g/dL (32.0-36.0); MEAN CORPUSCULAR VOLUME 102.4 fL (81.0-99.0); MEAN PLATELET VOLUME 11.6 fL (7.9-10.8); MONOCYTES # (AUTO) 0.7 10^3/uL (0.0-1.0); MONOCYTES % (AUTO) 9.2 %; NEUTROPHILS # (AUTO) 5.9 10^3/uL (1.5-6.6); NEUTROPHILS % (AUTO) 73.5 %; PLT - PLATELET COUNT 224 10^3/uL (130-450); RED BLOOD COUNT 3.76 10^6/uL (4.20-5.40); RED CELL DISTRIBUTION WIDTH 12.1 % (12.0-15.0); WHITE BLOOD COUNT 8.1 x10^3/uL (4.8-10.8)
[2020-09-25 15:47] LABS: CALCIUM 9.2 mg/dL (8.5-10.3); CREATININE 0.8 mg/dL (0.4-1.0); POTASSIUM 3.9 mmol/L (3.5-5.0)
--- NOTE | 2020-09-25 16:51 | ED Physician Documentation ---
History of Present Illness - Stated complaint Stated Complaint: FEMALE - Chief complaint Chief Complaint: General - History obtained from History obtained from: Patient - Additonal information Additional information: 79-year-old woman presents with a week or more worth of lightheadedness, feels like her head is full of cotton, has no energy. Denies chest pain or trouble breathing. She also has about a weeks worth of urinary urgency frequency and dysuria consistent with prior episodes of UTI although reportedly was seen in the clinic with negative urinalysis results. Feels like she was not drinking enough water with recent heat wave. Review of Systems Constitutional: reports: Myalgias. 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: Hysterectomy Cardiovascular: Coronary stent HEENT: Cataracts, Tonsil/Adenoidectomy, Other - Present Medications Home Medications: Ambulatory Orders Medication Instructions Recorded Confirmed Lisinopril [Zestril] 20 mg PO BID 08/13/15 05/05/16 hydroCHLOROthiazide 12.5 mg PO DAILY 08/13/15 05/05/16 [Hydrochlorothiazide] Atorvastatin [Lipitor] 40 mg PO QPM 05/05/16 05/07/16 Clopidogrel Bisulfate [Plavix] 75 mg PO DAILY 05/05/16 05/05/16 Fexofenadine HCl [Jazmín Allergy] 180 mg PO DAILY 05/05/16 05/05/16 Nefazodone HCl 200 mg PO BID 05/05/16 05/05/16 Aspirin Chewable [St Skinny 81 mg PO DAILY 05/07/16 05/07/16 Aspirin] Calcium Carbonate/Vitamin D3 1 tab PO DAILY 05/07/16 05/07/16 [Calcium 500 + Vit D Caplet] Levothyroxine [Synthroid] 75 mcg PO QDAC 05/07/16 05/07/16 Metoprolol Succinate [Toprol Xl] 25 mg PO BID 05/07/16 05/07/16 Multivit-Min/Iron/Folic Acid/K 1 cap PO DAILY 05/07/16 05/07/16 [Multi For Her Softgel] Omeprazole [PriLOSEC] 20 mg PO BID 05/07/16 05/07/16 Potassium Chloride [Klor-Con 10] 20 meq PO DAILY 05/07/16 05/07/16 Lidocaine Patch 5% [Lidoderm Patch] 1 each TOP DAILY PRN #10 patch 06/06/16 Oxycodone HCl/Acetaminophen 1 - 2 tab PO Q4H PRN #15 tablet 06/06/16 [Percocet 5-325 mg Tablet] Tramadol HCl 50 mg PO BID PRN #15 tablet 04/11/17 Hydrocodone/Acetaminophen 0 - 1 each PO Q6H PRN #14 tablet 11/01/18 [Hydrocodon-Acetaminophen 5-325] cephALEXin [Keflex] 250 mg PO Q6H #20 capsule 11/01/18 Nitrofurantoin [Macrobid] 1 cap PO BID #10 cap 09/25/20 - Allergies Allergies/Adverse Reactions: Allergies Allergy/AdvReac Type Severity Reaction Status Date / Time amoxicillin trihydrate * AdvReac Severe Cramps Verified 09/25/20 14:30 [From Augmentin] Niacin Preparations AdvReac Severe Unknown Verified 09/25/20 14:30 potassium clavulanate * AdvReac Severe Cramps Verified 09/25/20 14:30 [From Augmentin] - Social History Does the pt smoke?: No Smoking Status: Never smoker Does the pt drink ETOH?: Yes Does the pt have substance abuse?: No - Immunizations Immunizations are current?: Yes - POLST Patient has POLST: Yes PD ED PE NORMAL - Vitals Vital signs reviewed: Yes - General General: Alert and oriented X 3, No acute distress - HEENT HEENT: PERRL, EOMI, Ears normal, Pharynx benign - Neck Neck: Supple, no meningeal sign, No bony TTP - Cardiac Cardiac: RRR, No murmur - Respiratory Respiratory: No respiratory distress, Clear bilaterally - Abdomen Abdomen: Normal bowel sounds, Soft, Non tender - Back Back: No CVA TTP, No spinal TTP - Derm Derm: Normal color, Warm and dry - Extremities Extremities: No edema, No calf tenderness / cord - Neuro Neuro: Alert and oriented X 3, Normal speech Results - Vitals Vitals: Vital Signs - 24 hr 09/25/20 14:30 Temperature 36.8 C Heart Rate 72 Respiratory 16 Rate Blood Pressure 142/62 H O2 Saturation 93 Oxygen O2 Source Room air - Labs Labs: Laboratory Tests 09/25/20 09/25/20 09/25/20 15:31 15:31 18:17 WBC 8.1 RBC 3.76 L Hgb 13.5 Hct 38.5 MCV 102.4 H MCH 35.9 H MCHC 35.1 RDW 12.1 Plt Count 224 MPV 11.6 H Neut # (Auto) 5.9 Lymph # (Auto) 1.2 L [place] # (Auto) 0.7 Eos # (Auto) 0.1 Baso # (Auto) 0.1 Absolute Nucleated RBC 0.00 Nucleated RBC % 0.0 Sodium 135 Potassium 3.9 Chloride 103 Carbon Dioxide 23 Anion Gap 9.0 BUN 25 H Creatinine 0.8 Estimated GFR (MDRD) 69 L Glucose 116 H Calcium 9.2 Urine Color ORANGE Urine Clarity CLEAR Urine pH 5.0 Ur Specific [place] 1.015 Urine Protein NEGATIVE Urine Glucose (UA) NEGATIVE Urine Ketones NEGATIVE Urine Occult Blood NEGATIVE Urine Nitrite POSITIVE H Urine Bilirubin NEGATIVE Urine Urobilinogen 1 (NORMAL) Ur Leukocyte Esterase NEGATIVE Urine RBC 0-5 Urine WBC 4-5 Ur Squamous Epith Cells FEW Squamous Urine Bacteria Few Urine Casts 6-10 Course Granular Ur Microscopic Review INDICATED Urine Culture Comments INDICATED PD MEDICAL DECISION MAKING - ED course ED course: 79-year-old woman presents with nonspecific dizziness, nothing in the history or physical to suggest cardiac etiology. Noted to have elevated BUN over her usual, suspect dehydration is at least partially causative and will give her some IV fluids. Departure - Departure Disposition: 01 Home, Self Care Clinical Impression: Dehydration UTI (urinary tract infection) Qualifiers: Urinary tract infection type: acute cystitis Hematuria presence: without he maturia Qualified Code(s): N30.00 - Acute cystitis without hematuria Condition: Good Record reviewed to determine appropriate education?: Yes Instructions: ED Dehydration Prescriptions: Nitrofurantoin [Macrobid] 1 cap PO BID #10 cap Comments: We will culture your urine, the results should be done in 48-72 hours. If an antibiotic change is necessary we will call you. Return if worse in the meantime, especially if you develop increasing flank pain, fevers, or cannot keep down the medication. Call your doctor to arrange a follow-up appointment, make the next available appointment. In the interim, return anytime if worse or if new symptoms develop.
[2020-09-25] MEDS ORDERED: SODIUM CHLORIDE 0.9% 2,000 ML IV STA (16:52)
[2020-09-25 18:27] LABS: BILIRUBIN,URINE NEGATIVE (NEGATIVE); GLUCOSE, URINE (UA) NEGATIVE (NEGATIVE); KETONES,URINE (UA) NEGATIVE (NEGATIVE); LEUKOCYTE ESTERASE, URINE NEGATIVE (NEGATIVE); NITRITE,URINE POSITIVE (NEGATIVE); OCCULT BLOOD,URINE NEGATIVE (NEGATIVE); PROTEIN,URINE NEGATIVE (NEGATIVE); UROBILINOGEN,URINE 1 (NORMAL) E.U./dL (NORMAL)
[2020-09-25 18:34] LABS: CLARITY,URINE CLEAR (CLEAR)
[2020-09-25 18:41] LABS: BACTERIA,URINE Few /HPF (None Seen); CASTS, URINE 6-10 Course Granular /LPF; RBC,URINE 0-5 /HPF (0-5); SQUAMOUS EPITHELIAL CELL,UR FEW Squamous (<= Few)
[2020-09-25] MEDS ORDERED: cefTRIAXone 1 GM in SODIUM CHLORIDE 0.9% MINIBAG 100 ML IV STA (18:56)
[2020-09-25] MEDS ORDERED: cefTRIAXone 1 GM VIAL ONE (19:06)
[2020-09-25 19:27] VITALS: BP 148/82
== END 2020-09-25 19:55 | disposition home or self-care (01) ==
LOC: ED 14:10
DX: E86.0 Dehydration (principal); N30.00 Acute cystitis without hematuria
CPT/HCPCS: 36415; 80048; 81001; 81003; 85025; 87077; 87086; 87181; 96361; 96365; 99284

== ENCOUNTER 2020-09-29 16:04 | Outpatient (CLI) | payer MEDICARE, OTHER | END 2020-09-29 16:05 | disposition critical access hospital (66) | LOC: EMS 16:04 | DX: R30.0 Dysuria (principal); R53.81 Other malaise | CPT/HCPCS: A0425; A0427 ==

== ENCOUNTER 2020-09-29 16:26 | Emergency (ER) | payer MEDICARE, OTHER ==
[2020-09-29 16:55] LABS: BASOPHILS # (AUTO) 0.1 10^3/uL (0.0-0.1); BASOPHILS % (AUTO) 0.9 %; EOSINOPHILS # (AUTO) 0.1 10^3/uL (0.0-0.7); EOSINOPHILS % (AUTO) 1.8 %; HCT - HEMATOCRIT 39.5 % (37.0-47.0); HGB - HEMOGLOBIN 13.7 g/dL (12.0-16.0); LYMPHOCYTES # (AUTO) 1.8 10^3/uL (1.5-3.5); LYMPHOCYTES % (AUTO) 23.1 %; MEAN CORPUSCULAR HEMOGLOBIN 35.4 pg (27.0-31.0); MEAN CORPUSCULAR HGB CONC 34.7 g/dL (32.0-36.0); MEAN CORPUSCULAR VOLUME 102.1 fL (81.0-99.0); MEAN PLATELET VOLUME 11.3 fL (7.9-10.8); MONOCYTES # (AUTO) 0.7 10^3/uL (0.0-1.0); MONOCYTES % (AUTO) 9.6 %; NEUTROPHILS # (AUTO) 4.9 10^3/uL (1.5-6.6); NEUTROPHILS % (AUTO) 64.3 %; PLT - PLATELET COUNT 226 10^3/uL (130-450); RED BLOOD COUNT 3.87 10^6/uL (4.20-5.40); RED CELL DISTRIBUTION WIDTH 11.9 % (12.0-15.0); WHITE BLOOD COUNT 7.6 x10^3/uL (4.8-10.8)
[2020-09-29 17:07] LABS: ALBUMIN 4.3 g/dL (3.2-5.5); ALBUMIN/GLOBULIN RATIO 1.7 (1.0-2.2); CALCIUM 9.1 mg/dL (8.5-10.3); CREATININE 0.8 mg/dL (0.4-1.0); POTASSIUM 3.7 mmol/L (3.5-5.0); TOTAL PROTEIN 6.8 g/dL (6.7-8.2)
--- NOTE | 2020-09-29 19:12 | ED Physician Documentation ---
PD HPI ABD PAIN - Stated complaint Stated Complaint: FEM - Chief complaint Chief Complaint: Abd Pain - History obtained from History obtained from: Patient - Additional information Additional information: I saw this 79-year-old woman 5 days ago for complaints of dysuria and frequency. Urine was positive for nitrite. Also had elevated BUN and got some IV fluids. Subsequently urinalysis grew Enterococcus faecalis which was pansensitive to what was tested. She was put on Macrobid. The antibiotic is marked as sensitive to the isolate. She returns with worsening left lower quadrant pain with diarrhea. 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 Cardiovascular: Coronary stent HEENT: Cataracts, Tonsil/Adenoidectomy, Other - Present Medications Home Medications: Ambulatory Orders Medication Instructions Recorded Confirmed Lisinopril [Zestril] 20 mg PO BID 08/13/15 05/05/16 hydroCHLOROthiazide 12.5 mg PO DAILY 08/13/15 05/05/16 [Hydrochlorothiazide] Atorvastatin [Lipitor] 40 mg PO QPM 05/05/16 05/07/16 Clopidogrel Bisulfate [Plavix] 75 mg PO DAILY 05/05/16 05/05/16 Fexofenadine HCl [Jazmín Allergy] 180 mg PO DAILY 05/05/16 05/05/16 Nefazodone HCl 200 mg PO BID 05/05/16 05/05/16 Aspirin Chewable [St Skinny 81 mg PO DAILY 05/07/16 05/07/16 Aspirin] Calcium Carbonate/Vitamin D3 1 tab PO DAILY 05/07/16 05/07/16 [Calcium 500 + Vit D Caplet] Levothyroxine [Synthroid] 75 mcg PO QDAC 05/07/16 05/07/16 Metoprolol Succinate [Toprol Xl] 25 mg PO BID 05/07/16 05/07/16 Multivit-Min/Iron/Folic Acid/K 1 cap PO DAILY 05/07/16 05/07/16 [Multi For Her Softgel] Omeprazole [PriLOSEC] 20 mg PO BID 05/07/16 05/07/16 Potassium Chloride [Klor-Con 10] 20 meq PO DAILY 05/07/16 05/07/16 Lidocaine Patch 5% [Lidoderm Patch] 1 each TOP DAILY PRN #10 patch 06/06/16 Oxycodone HCl/Acetaminophen 1 - 2 tab PO Q4H PRN #15 tablet 06/06/16 [Percocet 5-325 mg Tablet] Tramadol HCl 50 mg PO BID PRN #15 tablet 04/11/17 Hydrocodone/Acetaminophen 0 - 1 each PO Q6H PRN #14 tablet 11/01/18 [Hydrocodon-Acetaminophen 5-325] cephALEXin [Keflex] 250 mg PO Q6H #20 capsule 11/01/18 Nitrofurantoin [Macrobid] 1 cap PO BID #10 cap 09/25/20 Ciprofloxacin HCl [Cipro] 500 mg PO BID #20 tablet 09/29/20 - Allergies Allergies/Adverse Reactions: Allergies Allergy/AdvReac Type Severity Reaction Status Date / Time amoxicillin trihydrate * AdvReac Severe Cramps Verified 09/29/20 16:31 [From Augmentin] Niacin Preparations AdvReac Severe Unknown Verified 09/29/20 16:31 potassium clavulanate * AdvReac Severe Cramps Verified 09/29/20 16:31 [From Augmentin] - Social History Does the pt smoke?: No Smoking Status: Never smoker Does the pt drink ETOH?: Yes Does the pt have substance abuse?: No - Immunizations Immunizations are current?: Yes - POLST Patient has POLST: Yes PD ED PE NORMAL - Vitals Vital signs reviewed: Yes - General General: Alert and oriented X 3, No acute distress - Cardiac Cardiac: RRR, No murmur - Respiratory Respiratory: No respiratory distress, Clear bilaterally - Abdomen Abdomen: Other (Minimally tender in the left lower quadrants without guarding or rebound. No shingles rash that I can see.) - Neuro Neuro: Alert and oriented X 3, Normal speech Results - Vitals Vitals: Vital Signs - 24 hr 09/29/20 09/29/20 09/29/20 16:31 20:00 21:00 Temperature 36.6 C 36.8 C 36.8 C Heart Rate 66 54 L 59 L Respiratory 16 16 16 Rate Blood Pressure 150/89 H 175/82 H 192/85 H O2 Saturation 100 98 98 09/29/20 09/29/20 21:52 23:01 Temperature 36.0 C L Heart Rate 53 L 62 Respiratory 15 16 Rate Blood Pressure 189/78 H 170/74 H O2 Saturation 95 96 Oxygen O2 Source Room air - Labs Labs: Laboratory Tests 09/29/20 09/29/20 09/29/20 16:49 16:49 19:35 WBC 7.6 RBC 3.87 L Hgb 13.7 Hct 39.5 MCV 102.1 H MCH 35.4 H MCHC 34.7 RDW 11.9 L Plt Count 226 MPV 11.3 H Neut # (Auto) 4.9 Lymph # (Auto) 1.8 [place] # (Auto) 0.7 Eos # (Auto) 0.1 Baso # (Auto) 0.1 Absolute Nucleated RBC 0.00 Nucleated RBC % 0.0 Sodium 136 Potassium 3.7 Chloride 102 Carbon Dioxide 22 Anion Gap 12.0 BUN 20 Creatinine 0.8 Estimated GFR (MDRD) 69 L Glucose 99 Calcium 9.1 Total Bilirubin 1.0 AST 26 ALT 17 Alkaline Phosphatase 92 Total Protein 6.8 Albumin 4.3 Globulin 2.5 Albumin/Globulin Ratio 1.7 Lipase 29 Urine Color ORANGE Urine Clarity CLEAR Urine pH 5.0 Ur Specific [place] 1.015 Urine Protein ... Urine Glucose (UA) ... Urine Ketones ... Urine Occult Blood NEGATIVE Urine Nitrite ... Urine Bilirubin NEGATIVE Urine Urobilinogen ... Ur Leukocyte Esterase TRACE H Urine RBC 0-5 Urine WBC 0-3 Ur Squamous Epith Cells MOD Squamous H Urine Bacteria Rare Ur Microscopic Review INDICATED Urine Culture Comments NOT INDICATED PD MEDICAL DECISION MAKING - ED course ED course: 79-year-old woman presents with left pelvic pain with recent diagnosis of Enterococcus UTI, on Macrobid which should be appropriate unless she had early pyelonephritis. Given the lateralization that may be the case. To assess for other etiologies, CT of the abdomen with IV contrast was done and interpreted contemporaneously by me which shows mild diverticulosis, 3.7 cm simple cyst in the right Kidney, a 1 cm nodule on the posterior left diaphragm needing follow- up imaging in 3 months, scoliosis and degenerative changes of the spine. Patient did have some relief with Toradol here. She is administered IV ciprofloxacin presuming early pyelonephritis. Follow-up for the nodule was advised. Departure - Departure Disposition: 01 Home, Self Care Clinical Impression: Pyelonephritis Condition: Good Record reviewed to determine appropriate education?: Yes Instructions: Pyelonephritis Dc Prescriptions: Ciprofloxacin HCl [Cipro] 500 mg PO BID #20 tablet Comments: You are seen today for persistent UTI, it may be starting to trend toward your kidney given the left-sided nature of the pain. This should be well treated with the ciprofloxacin and we gave you an IV dose here. CT imaging demonstrated some incidental findings, diverticulosis and a simple cyst in the right kidney, those do not require follow-up, but you do have a 1 cm nodule along the posterior left diaphragm and will need a repeat CT in 3 months. Discussed this with your doctor. Also your blood pressure was modestly elevated tonight. We gave you a small dose of blood pressure medicine for here, but make sure to have a blood pressure recheck with your doctor and a general recheck in 3 to 5 days. Return if worsening. Discharge Date/Time: 09/29/20 23:03
[2020-09-29] MEDS ORDERED: KETOROLAC 15 MG/ML VIAL IVP STA (19:17)
[2020-09-29] MEDS ORDERED: IOVERSOL 320 100 ML VIAL IVP ONE ×2 (19:29→22:40)
[2020-09-29 20:11] LABS: BILIRUBIN,URINE NEGATIVE (NEGATIVE); LEUKOCYTE ESTERASE, URINE TRACE (NEGATIVE); OCCULT BLOOD,URINE NEGATIVE (NEGATIVE)
[2020-09-29 20:13] LABS: CLARITY,URINE CLEAR (CLEAR)
[2020-09-29 20:15] LABS: BACTERIA,URINE Rare /HPF (None Seen); RBC,URINE 0-5 /HPF (0-5); SQUAMOUS EPITHELIAL CELL,UR MOD Squamous (<= Few); WBC,URINE 0-3 /HPF (0-5)
[2020-09-29] MEDS ORDERED: lisinopriL 5 MG TABLET PO STA (21:10)
--- NOTE | 2020-09-29 21:19 | CT Report ---
PROCEDURE: Abdomen/Pelvis W INDICATIONS: IV only, LLQ pain CONTRAST: IV CONTRAST: Optiray 320 ml: 100 PO CONTRAST: *NO PO CONTRAST TECHNIQUE: After the administration of intravenous contrast, 5 mm thick sections acquired from the diaphragms to the symphysis. 5 mm thick coronal and sagittal reformats were acquired. For radiation dose reducti on, the following was used: automated exposure control, adjustment of mA and/or kV according to jeremy ent size. COMPARISON: X-ray lumbar spine, 06/06/2016. FINDINGS: Image quality: Excellent. ABDOMEN: Lung bases: Lung bases are clear. Heart size is normal. Large paraesophageal hiatal hernia. Solid organs: Liver and spleen are normal in size and enhancement. Gallbladder is normal. Biliary system is non dilated. Pancreas enhances normally. No adrenal nodules. Kidneys demonstrate normal size and enhancement, without hydronephrosis. As a 3.7 cm simple cyst in right kidney. Peritoneum and bowel: Bowel loops demonstrate normal wall thickness and caliber. Normal appendix. T here are a few colonic diverticula in sigmoid colon. No diverticulitis. No free fluid or air. There i s a 1 cm peritoneal nodule on the posterior left hemidiaphragm. Nodes and vessels: No retroperitoneal or mesenteric adenopathy by size criteria. Aorta and inferior vena cava are normal in size. Miscellaneous: No ventral hernias. PELVIS: Genitourinary: Bladder wall thickness is normal. Uterus is absent. There is a 1.5 cm left ovarian c yst. Right ovary is not visualized. Miscellaneous: No inguinal hernias or adenopathy. Bones: S-shaped scoliosis. There is grade 1-2 anterolisthesis of L4-L5. Severe degenerative changes in lumbar spine. No suspicious bony lesions. No vertebral body compression fractures. Right hip art hroplasty. IMPRESSION: 1. Mild diverticulosis without diverticulitis. 2. A 3.7 cm simple cyst in the right kidney. 3. A 1 cm nodule peritoneal along the posterior left hemidiaphragm, uncertain clinical significance. A follow-up imaging may be obtained in 3 months. 4. Scoliosis and degenerative changes in lumbar spine. Reviewed by: Kayce Vee MD on 09/29/2020 9:18 PM PDT Approved by: Kayce Vee MD on 09/29/2020 9:18 PM PDT Station ID: [id number]
[2020-09-29] MEDS ORDERED: CIPROFLOXACIN 400 MG/200 ML 400 MG/200 ML BAG IV STA (21:44)
[2020-09-29 23:03] VITALS: BP 170/74
== END 2020-09-29 23:03 | disposition home or self-care (01) ==
LOC: EDUNIT# → SUPCPDRO 16:26 → ED 16:26
DX: N39.0 Urinary tract infection, site not specified (principal); N12 Tubulo-interstitial nephritis, not specified as acute or chronic; K57.10 Diverticulosis of small intestine without perforation or abscess without bleeding; N28.1 Cyst of kidney, acquired; J98.6 Disorders of diaphragm; I10 Essential (primary) hypertension
CPT/HCPCS: 36415; 74177; 80053; 81001; 83690; 85025; 96365; 96375; 99284; A9270; Q9967; 81003; 87086

== ENCOUNTER 2021-03-05 11:38 | Outpatient (CLI) | payer MEDICARE, OTHER ==
[2021-03-05 18:15] LABS: BASOPHILS # (AUTO) 0.1 10^3/uL (0.0-0.1); EOSINOPHILS # (AUTO) 0.1 10^3/uL (0.0-0.7); EOSINOPHILS % (AUTO) 1.7 %; HCT - HEMATOCRIT 40.9 % (37.0-47.0); HGB - HEMOGLOBIN 13.4 g/dL (12.0-16.0); LYMPHOCYTES # (AUTO) 1.5 10^3/uL (1.5-3.5); LYMPHOCYTES % (AUTO) 21.3 %; MEAN CORPUSCULAR HEMOGLOBIN 35.3 pg (27.0-31.0); MEAN CORPUSCULAR HGB CONC 32.8 g/dL (32.0-36.0); MEAN CORPUSCULAR VOLUME 107.6 fL (81.0-99.0); MEAN PLATELET VOLUME 11.4 fL (7.9-10.8); MONOCYTES # (AUTO) 0.5 10^3/uL (0.0-1.0); MONOCYTES % (AUTO) 7.6 %; NEUTROPHILS # (AUTO) 4.8 10^3/uL (1.5-6.6); NEUTROPHILS % (AUTO) 68.1 %; PLT - PLATELET COUNT 267 10^3/uL (130-450); RED CELL DISTRIBUTION WIDTH 13.5 % (12.0-15.0)
[2021-03-05 18:31] LABS: CALCIUM 9.1 mg/dL (8.5-10.3); CREATININE 0.9 mg/dL (0.4-1.0); POTASSIUM 3.9 mmol/L (3.5-5.0)
[2021-03-05 18:57] LABS: FOLATE 11.06 ng/mL (5.90 - >24.8)
== END 2021-03-05 11:39 | disposition home or self-care (01) ==
LOC: LAB.N 11:38
PROVIDERS: ATTEND Family Medicine
DX: D75.89 Other specified diseases of blood and blood-forming organs (principal); M25.569 Pain in unspecified knee; E78.5 Hyperlipidemia, unspecified; I10 Essential (primary) hypertension; R30.0 Dysuria; E03.9 Hypothyroidism, unspecified; D64.9 Anemia, unspecified; N39.0 Urinary tract infection, site not specified; F32.A Depression, unspecified; F41.9 Anxiety disorder, unspecified; E87.6 Hypokalemia
CPT/HCPCS: 36415; 80048; 82607; 82746; 85025; 87086

== ENCOUNTER 2021-03-12 12:07 | Outpatient (CLI) | payer MEDICARE, OTHER | END 2021-03-12 12:08 | disposition home or self-care (01) | LOC: LAB.N 12:07 | PROVIDERS: ATTEND Family Medicine | DX: N39.0 Urinary tract infection, site not specified (principal) | CPT/HCPCS: 87077; 87086; 87181 ==

== ENCOUNTER 2021-06-25 12:17 | Outpatient (CLI) | payer MEDICARE, OTHER ==
--- NOTE | 2021-06-25 16:58 | CT Report ---
PROCEDURE: CHEST WO INDICATIONS: OTHER SPECIFIED DISORDERS OF PERITONEUM TECHNIQUE: Noncontrast 1mm axial images were acquired from the pulmonary apices to the posterior costophrenic an gles. Axial 5 mm soft tissue kernel reconstructions were performed as well as 8 mm axial MIP and cor onal and sagittal 5 mm reformations. For radiation dose reduction, the following was used: automate d exposure control, adjustment of mA and/or kV according to patient size. COMPARISON: None FINDINGS: Image quality: Excellent. Lungs and pleura: No acute air space opacities. Calcified granulomata within the left upper lobe an teriorly and posterolaterally. No pleural effusions or pneumothorax. Central and peripheral airways are patent and normal in caliber. Mediastinum: Heart size is normal. Calcification of the coronary vasculature is present. No pericar dial effusion. No mediastinal adenopathy by size criteria. Thoracic aorta and central pulmonary art eries are normal in size. Esophagus is normal in caliber. Large hiatal hernia. Bones and chest wall: No suspicious bony lesions. No vertebral body compression fractures. No axil hellen or supraclavicular adenopathy by size criteria. Thyroid is not seen. Abdomen: Visualized upper abdominal solid organs and bowel loops appear normal in the absence of con trast. IMPRESSION: 1. No evidence of malignancy. 2. Remote granulomatous disease. 3. Coronary artery disease. 4. Large hiatal hernia. Reviewed by: Antonina Gage MD on 06/25/2021 4:57 PM PDT Approved by: Antonina Gage MD on 06/25/2021 4:57 PM PDT Station ID: [id number]
== END 2021-06-25 12:18 | disposition home or self-care (01) ==
LOC: DI 12:17
PROVIDERS: ATTEND Family Medicine
DX: K44.9 Diaphragmatic hernia without obstruction or gangrene (principal); I25.10 Atherosclerotic heart disease of native coronary artery without angina pectoris

== ENCOUNTER 2021-06-29 14:03 | Outpatient (CLI) | payer MEDICARE, OTHER | END 2021-06-29 23:59 | disposition home or self-care (01) | LOC: LAB.N 14:03 | PROVIDERS: ATTEND Family Medicine | DX: R30.0 Dysuria (principal) | CPT/HCPCS: 87086 ==